=== PATIENT | female | born 1965 | race Caucasian/White ===

== ENCOUNTER 2020-07-10 20:44 | Emergency (ER) | payer MEDICARE, SELFPAY ==
--- NOTE | ~2020-07-10 | CT_ITS ---
EXAMINATION: CT abdomen pelvis w con DATE: 07/10/2020 22:33 INDICATION: Generalized abdominal pain. TECHNIQUE: Computed tomography (CT) of the abdomen and pelvis was performed with 100 mL Omnipaque 350 intravenous contrast. Automated exposure control and iterative reconstruction technique were employe d. The dose-length product was 373.01 mGy-cm. COMPARISON: None. FINDINGS: The visualized portions of the lung bases demonstrate mild atelectasis. A calcified right l sinan nodule is consistent with old granulomatous disease. No pleural effusion. The heart size is shaun l. No pericardial effusion. The liver, gallbladder, spleen, pancreas, adrenal glands, and kidneys are normal. There is a large volume of stool in the colon. The appendix is normal. There are no patholog ically enlarged lymph nodes. There is no free intraperitoneal fluid. There is severe thoracic spondyl osis and lumbar spondylosis. IMPRESSION: 1. Large volume of stool in the colon. Reviewed, dictated and finalized at location A.
[2020-07-10 20:45] VITALS: BP 105/55; PULSE 78; RESP 14; TEMP 36.3; O2SAT 100
--- NOTE | 2020-07-10 21:11 | ED.GENADULT ---
HPI - General Adult General Chief complaint: Abdominal Pain Stated complaint: abd pain since 2pm Time Seen by Provider: 07/10/20 21:05 History of Present Illness HPI narrative: Patient is a 55-year-old female who presents emerged from with chief complaint of abdominal pain. Patient states been going on for several weeks reports she has history of chronic abdominal pain has history of celiac and is followed by [facility] fabricator at [facility]. Patient reports has had an EGD recently and is scheduled to have a CAT scan but had not been able to get arranged yet. Patient states that it is a cramping-like feeling throughout her abdomen reports not improved by anything nor is worsened by anything. The patient reports she has had intermittent diarrhea Related Data Allergies Allergy/AdvReac Type Severity Reaction Status Date / Time meperidine [From Demerol] Allergy Vomiting Verified 07/10/20 21:56 Review of Systems Review of Systems: Narrative: A 10 system review of systems was completed on the patient and is negative except for what is stated in the HPI. Nursing and ancillary documentation was reviewed. PMFSH Comments Patient has history of celiac Surgical history the patient has history of a hysterectomy and history of exploratory laparotomies with lysis of adhesions. Social history the patient lives with her Exam Narrative: Exam Narrative: GENERAL: Well-appearing, well-nourished, and in no acute distress. HEAD: Normocephalic, atraumatic. EYES: PERRLA and EOMI. ENT: Nares clear, no rhinorrhea or epistaxis. Mucous membranes moist. NECK: Supple. CHEST: Clear to auscultation. No respiratory distress. HEART: Regular rate and rhythm. No murmur heard. Normal peripheral pulses. ABDOMEN: Soft, diffuse tenderness to palpation, nondistended, normal active bowel sounds. EXTREMITIES: Normal range of motion. No edema. SKIN: Warm, dry, no rash. NEURO: No focal deficits. Alert and oriented x3. PSYCH: Normal mood and affect. Course Course Emergency Course: Patient is feeling much better at this time. CT scan of the abdomen pelvis shows chronic constipation and incomplete distention of the rectal area. Vital Signs Vital signs: Vital Signs Temperature 36.3 C L 07/10/20 20:45 Pulse Rate 78 07/10/20 20:45 Respiratory Rate 14 07/10/20 20:45 Blood Pressure 105/55 L 07/10/20 20:45 Pulse Oximetry 100 07/10/20 20:45 Temperature 36.8 C 07/10/20 23:19 Pulse Rate 74 07/10/20 23:19 Respiratory Rate 16 07/10/20 23:19 Blood Pressure 120/76 07/10/20 23:19 Pulse Oximetry 100 07/10/20 23:19 Medical Decision Making Vital Signs Vital Signs: Vital Signs Temperature 36.3 C L 07/10/20 20:45 Pulse Rate 78 07/10/20 20:45 Respiratory Rate 14 07/10/20 20:45 Blood Pressure 105/55 L 07/10/20 20:45 Pulse Oximetry 100 07/10/20 20:45 Temperature 36.8 C 07/10/20 23:19 Pulse Rate 74 07/10/20 23:19 Respiratory Rate 16 07/10/20 23:19 Blood Pressure 120/76 07/10/20 23:19 Pulse Oximetry 100 07/10/20 23:19 Lab Data Result diagrams: 07/10/20 21:32 07/10/20 21:32 Labs: Lab Results 07/10/20 07/10/20 07/10/20 Range/Units 21:32 21:32 22:16 WBC 7.8 (4.5-10.0) K/mm3 RBC 4.41 (4.2-5.4) M/mm3 Hgb 13.7 (12.0-15.0) g/dL Hct 39.6 (37.0-47.0) % MCV 89.8 (80-100) fl MCH 31.1 (26-34) pg MCHC 34.6 (32-36) g/dl RDW 12.7 (11.5-14.5) % Plt Count 185 (150-375) k/mm3 MPV 9.5 (7.4-10.4) fl Immature Gran % (Auto) 0.1 (0-0.5) % Neut % (Auto) 78.8 H (45.5-73.1) % Lymph % (Auto) 16.0 L (18.3-44.2) % Bollinger % (Auto) 4.2 (2.6-8.5) % Eos % (Auto) 0.5 (0-4.4) % Baso % (Auto) 0.4 (0.2-1.2) % Lymph # (Auto) 1.25 (0.9-3.2) K/mm3 Bollinger # (Auto) 0.3 (0.1-0.6) K/mm3 Eos # (Auto) 0.0 (0-0.3) K/mm3 Baso # (Auto) 0.0 (0.0-0.1) K/mm3 Abs Immat Gran (auto) 0.01 (0.00-0.031) K/mm
[2020-07-10 21:36] LABS: Basophils Percent Auto 0.4 % (0.2-1.2); Eosinophils Percent Auto 0.5 % (0-4.4); Hematocrit 39.6 % (37.0-47.0); Hemoglobin 13.7 g/dL (12.0-15.0); Immature Granulocyte Absolute 0.01 K/mm3 (0.00-0.031); Immature Granulocyte Percent A 0.1 % (0-0.5); Lymphocytes Absolute Auto 1.25 K/mm3 (0.9-3.2); Mean Corpuscular HGB Conc 34.6 g/dl (32-36); Mean Corpuscular Hemoglobin 31.1 pg (26-34); Mean Corpuscular Volume 89.8 fl (80-100); Mean Platelet Volume 9.5 fl (7.4-10.4); Monocytes Absolute Auto 0.3 K/mm3 (0.1-0.6); Monocytes Percent Auto 4.2 % (2.6-8.5); Neutrophils Absolute Auto 6.2 K/mm3 (1.3-6.7); Neutrophils Percent Auto 78.8 % (45.5-73.1); Platelet Count Result 185 k/mm3 (150-375); Red Blood Count 4.41 M/mm3 (4.2-5.4); Red Cell Distribution Width 12.7 % (11.5-14.5); White Blood Count 7.8 K/mm3 (4.5-10.0)
[2020-07-10 21:51] LABS: Alanine Aminotransferase 21 U/L (4-35); Albumin Level 4.2 g/dL (3.5-5.1); Alkaline Phosphatase 73 U/L (38-126); Anion Gap 5 mmol/L (8-16); Aspartate Amino Transferase 28 U/L (14-36); Bilirubin,Total 0.4 mg/dL (0.2-1.3); Blood Urea Nitrogen 12 mg/dL (7-17); Calcium 8.9 mg/dL (8.4-10.2); Carbon Dioxide 28 mmol/L (22-30); Chloride 104 mmol/L (98-107); Estimated Glomerular Filt Rate > 60; Glucose 184 mg/dL (65-105); Lipase 82 U/L (23-300); Potassium 4.2 mmol/L (3.4-5.0); Sodium 137 mmol/L (137-145)
[2020-07-10] MEDS: ONDANSETRON INJ 4 MG/2 ML VIAL IV PUSH (21:57)
[2020-07-10] MEDS: DICYCLOMINE HCL INJ 20 MG/2 ML VIAL IM (21:57)
[2020-07-10] MEDS: MORPHINE SULFATE (*CRX) 4 MG/ML INJ IV PUSH (21:58)
[2020-07-10] MEDS: SODIUM CHLORIDE 0.9% IV 1,000 ML 999 ML IV CONT (21:59)
[2020-07-10 22:29] LABS: Add Urine Microscopic? YES; Appearance Urine Clear (Clear); Bacteria Urine Trace /hpf; Bilirubin Urine Negative (Negative); Blood Urine Negative (Negative); Color Urine Yellow (Yellow); Glucose Urine UA Negative (Negative); Ketones Urine Negative (Negative); Leukocyte Esterase Ur Negative LEU/UL (Negative); Mucus Urine Rare /lpf; Nitrate Urine Negative (Negative); Protein Urine Negative (Negative); RBC Urine 0-2 /hpf (0-2); Specific Grav Ur 1.013 (1.001-1.035); Squamous Epithelial Cell Urine Rare /hpf (Few); WBC Urine 0-3 /hpf
[2020-07-10 23:19] VITALS: BP 120/76; PULSE 74; RESP 16; TEMP 36.8; O2SAT 100
[2020-07-11 00:22] VITALS: BP 104/70; PULSE 60; RESP 16; TEMP 36.7; O2SAT 100
== END 2020-07-11 00:25 | disposition home or self-care (01) ==
PROVIDERS: Emergency Medicine; Emergency Provider Emergency Medicine; PCP Internal Medicine
DX: R10.84 Generalized abdominal pain (principal); K90.0 Celiac disease
CPT/HCPCS: 36415; 74177; 80053; 81001; 83690; 85025; 96361; 96372; 96374; 96375; 99284; J0500; J2270; J2405; J7030; Q9967